=== PATIENT | female | born 1960 | race Two or more races ===

== ENCOUNTER 2018-10-05 17:45 | Emergency (ER) | payer OTHER ==
[~2018-10-05] VITALS: Ht 160 cm; Wt 74.8 kg
[2018-10-05 18:38] LABS: Urine Bacteria FEW /hpf (None Seen); Urine Blood 2+ /uL (Negative); Urine Specific Gravity 1.026 (1.001-1.035); Urine WBC 88 /hpf (0 - 5)
[2018-10-05 19:49] LABS: Basophils # (auto) 0.1 uL; Basophils % (auto) 0.9 % (0.0-2.0); Eosinophils # (auto) 0.1 uL; Eosinophils % (auto) 1.2 % (0.0-7.0); Hematocrit 44.4 % (36.0-46.0); Hemoglobin 14.7 g/dL (12.2-16.2); Lymphocytes # (auto) 1.7 uL; Lymphocytes % (auto) 18.3 % (10.0-50.0); Mean Corpuscular Hemoglobin 29.8 pg (28.0-32.0); Mean Corpuscular Volume 90.1 fL (80.0-100.0); Monocytes # (auto) 0.5 uL; Monocytes % (auto) 5.6 % (0.0-12.0); Neutrophils # (auto) 6.8 uL; Platelet Count (auto) 358 10^3/uL (140-450); Red Blood Cells 4.93 10^6/uL (4.0-5.20); White Blood Cell 9.2 10^3/uL (4.4-10.8)
[2018-10-05] MEDS ORDERED: LIDOCAINE 2% (LOCAL ANESTH.) PF 5ml SDV ONE (20:09)
[2018-10-05] MEDS ORDERED: cefTRIAXone SOD 1,000 MG VL ONE (20:09)
[2018-10-05] MEDS ORDERED: cefTRIAXone W LIDOCAINE 1 GM IM IM ONE (20:15)
[2018-10-05] MEDS ORDERED: HYDROcodone-ACET 10/325MG TAB PO ONE (20:15)
[2018-10-05 20:16] VITALS: BP 162/80
[2018-10-05 20:17] LABS: Alanine Aminotransferase 45 U/L (13-56); Albumin 3.6 g/dL (3.4-5.0); Alkaline Phosphatase 256 U/L (45-117); Amylase 29 U/L (25-115); Aspartate Aminotransferase 19 U/L (15-37); Bilirubin, Total 0.2 mg/dL (0.2-1.0); Blood Urea Nitrogen 21 mg/dL (7-18); Carbon Dioxide 24 mmol/L (21-32); GFR African American 69 mL/min; GFR Non-African American 57 mL/min; Lipase 359 U/L (73-393); Magnesium 2.1 mg/dL (1.6-2.6); Total Protein 7.9 g/dL (6.4-8.2)
[2018-10-05 20:41] LABS: Anion Gap 9 (5-15); Chloride 98 mmol/L (98-107); Potassium 4.3 mmol/L (3.5-5.1); Sodium 131 mmol/L (136-145)
[2018-10-05 20:46] LABS: Glucose 545 mg/dL (74-106)
== END 2018-10-05 20:44 | disposition home or self-care (01) ==
LOC: ER 17:45
DX: N39.0 Urinary tract infection, site not specified (principal); E11.9 Type 2 diabetes mellitus without complications; I10 Essential (primary) hypertension
CPT/HCPCS: 36415; 74176; 80053; 81001; 82150; 83690; 83735; 84484; 85025; 96372; 99284; J0696; J2001